=== PATIENT | female | born 1975 | race Hispanic/Latino ===

== ENCOUNTER 2018-05-10 20:58 | Emergency (ER) | payer SELFPAY ==
[2018-05-10 21:28] LABS: Absolute Lymphocytes (CBC) 1.6 K/uL (0.7-4.9); Absolute Monocytes 0.5 K/uL (0.1-1.3); Absolute Neutrophil 4.8 K/uL (1.8-8.0); Basophils % 0.4 % (0-1.3); Hematocrit 38.8 % (36.0-45.0); Lymphocytes % 22.2 % (15.3-44.8); MCH 31.3 pg (27.0-35.0); MCV 88.1 fL (80-100); MPV 8.9 fL (7.6-11.3); RBC Red Blood Cell Count 4.41 M/uL (3.86-4.86)
[2018-05-10 21:32] LABS: Protime INR 0.99
--- NOTE | 2018-05-10 21:35 | RAD REPORT ---
EXAM DESCRIPTION: CT - Ct Stroke Brain Wo Cont - 05/10/2018 9:26 pm CLINICAL HISTORY: Aphasia COMPARISON: None. TECHNIQUE: Computed axial tomography of the head was obtained. IV contrast was not requested. All CT scans are performed using dose optimization technique as appropriate and may include automated exposure control or mA/KV adjustment according to patient size. FINDINGS: An intracranial bleed is not seen . The ventricles are normal in caliber. No extra-axial fluid collection is noted. Fluid within the sinuses/ mastoids is not seen. IMPRESSION: No acute intracranial abnormality is seen. If patient's symptoms persist MRI of the bra in would be recommended. Dr. Machuca was notified 9:29 p.m. April 10, 2018
[2018-05-10 21:41] LABS: BUN Blood Urea Nitrogen 20 mg/dL (7-18); Bicarbonate 26 mmol/L (21-32); Glucose Level 88 mg/dL (74-106); Magnesium 2.3 mg/dL (1.8-2.4); Potassium 3.9 mmol/L (3.5-5.1); Sodium Level 139 mmol/L (136-145)
[2018-05-10] MEDS ORDERED: LABETALOL 20 MG/4ML SYRINGE IV ONE ×2 (21:45→22:12)
[2018-05-10] MEDS ORDERED: ALTEPLASE 100 ML IV ONE (22:13)
[2018-05-10] MEDS ORDERED: NA CHLORIDE 0.9% 50 ML IV ONE (22:21)
--- NOTE | 2018-05-10 22:46 | RAD REPORT ---
EXAM DESCRIPTION: RAD - Chest Single View - 05/10/2018 9:42 pm CLINICAL HISTORY: CVA Chest pain. COMPARISON: Ct Stroke Brain Wo Cont dated 05/10/2018 FINDINGS: Portable technique limits examination quality. The lungs are grossly clear. Trace left pleural effusion is possible. The heart is normal in size. No displaced fractures. IMPRESSION: No acute intrathoracic process suspected.
[2018-05-10] MEDS ORDERED: ACETAMINOPHEN 325 MG TABLET ONE (22:58)
--- NOTE | 2018-05-10 23:16 | EDPHYS ---
Physician Documentation [facility] Name: Stacy Berrios Age: 43 yrs Sex: Female : 1975 Arrival Date: 05/10/2018 Time: 20:59 Bed 4 Private MD: ED Physician Nico Gresham HPI: 05/10 21:15 This 43 yrs old Female presents to ER via Unassigned with complaints of Headache, ps1 Slurred Speech, Eye Pain. 21:15 hx of TBI fell out of truck a year ago in April. HTN. Not on thinners. LKN 2014. Slurred ps1 speech. left facial droop. Right leg weakness. Headache. Stroke alert. . Historical: - Allergies: 21:21 PENICILLINS; ak1 - Home Meds: 21:21 None [Active]; ak1 - PMHx: 21:21 TBI; ak1 - PSHx: 21:21 None; ak1 - Immunization history:: Adult Immunizations unknown. - Social history:: Smoking status: unknown. - Ebola Screening: : No symptoms or risks identified at this time. ROS: 21:15 Constitutional: Negative for fever, chills, and weight loss, Eyes: Negative for injury, ps1 pain, redness, and discharge, ENT: Negative for injury, pain, and discharge, Cardiovascular: Negative for chest pain, palpitations, and edema, Respiratory: Negative for shortness of breath, cough, wheezing, and pleuritic chest pain, Abdomen/GI: Negative for abdominal pain, nausea, vomiting, diarrhea, and constipation, Back: Negative for injury and pain. 21:15 Neuro: Positive for headache, speech changes, weakness. Exam: 21:15 Constitutional: This is a well developed, well nourished patient who is awake, alert, ps1 and in no acute distress. Head/Face: Normocephalic, atraumatic. Eyes: Pupils equal round and reactive to light, extra-ocular motions intact. Lids and lashes normal. Conjunctiva and sclera are non-icteric and not injected. Chest/axilla: Normal chest wall appearance and motion. Nontender with no deformity. No lesions are appreciated. Cardiovascular: Regular rate and rhythm. No gallops, murmurs, or rubs. Normal PMI, no JVD. No pulse deficits. Respiratory: Lungs have equal breath sounds bilaterally, clear to auscultation and percussion. No rales, rhonchi or wheezes noted. No increased work of breathing, no retractions or nasal flaring. Abdomen/GI: Soft, non-tender, with normal bowel sounds. No distension or tympany. No guarding or rebound. No evidence of tenderness throughout. Skin: Warm, dry with normal turgor. Normal color with no rashes, no lesions, and no evidence of cellulitis. MS/ Extremity: Pulses equal, no cyanosis. Neurovascular intact. Full, normal range of motion. 21:15 Neuro: Orientation: is normal, Mentation: is normal, Cranial nerves: normal except left face droop, Motor: weak in right leg, dysarthria and mild aphasia. Vital Signs: 21:05 BP 174 / 137; Pulse 83; Resp 18; Temp 98.3; Pulse Ox 100% on R/A; Weight 72.57 kg (R); ak1 Height 4 ft. 9 in. (144.78 cm); Pain 10/10; 21:44 BP 171 / 103; Pulse 68; Resp 18; Pulse Ox 100% ; lp1 22:02 BP 143 / 117; Pulse 78; Resp 16; Pulse Ox 99% on R/A; lp1 22:06 BP 152 / 100; Pulse 72; Resp 16; Pulse Ox 99% on R/A; lp1 22:20 Weight 61.9 kg (M); lp1 22:25 lp1 23:00 BP 133 / 96; Pulse 73; Resp 19; Pulse Ox 100% on R/A; lp1 05/11 00:00 BP 114 / 80; Pulse 68; Resp 15; Pulse Ox 100% on R/A; lp1 05/10 22:20 Body Mass Index 29.53 (61.90 kg, 144.78 cm) lp1 05/10 22:25 See Flowsheet for further vitals lp1 NIH Stroke Scale Scores: 21:05 NIHSS Score: 4 ak1 21:09 NIHSS Score: 4 ak1 05/11 00:00 NIHSS Score: 2 lp1 [place] Coma Score: 00:00 Eye Response: spontaneous(4). Verbal Response: oriented(5). Motor Response: obeys lp1 commands(6). Total: 15. MDM: 05/10 21:21 Patient medically screened. ps1 05/10 21:20 Order name: Troponin (emerg Dept Use Only); Complete Time: :05/10 21:20 Order name: Magnesium; Complete Time: :05/10 21:20 Order name: Basic Metabolic Panel; Complete Time: 22: [facility] 05/10 21:20 Order name: CBC with Diff; Complete Time: :05/10 21:20 Order name: Protime (+inr); Complete Time: :05/10 21:20 Order name: Ptt, Activated; Complete Time: :05/10 21:20 Order name: CT Stroke Brain w/o Contrast; Complete Time: 22:05/10 21:20 Order name: Stroke CXR 1 View; Complete Time: 23:05/10 21:20 Order name: EKG; Complete Time: 21:05/10 21:20 Order name: Accucheck; Complete Time: :05/10 21:20 Order name: Cardiac monitoring; Complete Time: :05/10 21:20 Order name: EKG - Nurse/Tech; Complete Time: :05/10 21:20 Order name: IV Saline Lock; Complete Time: :05/10 21:20 Order name: Labs collected and sent; Complete Time: :05/10 21:20 Order name: NPO; Complete Time: :05/10 21:20 Order name: O2 Per Protocol; Complete Time: :05/10 21:20 Order name: O2 Sat Monitoring; Complete Time: :05/10 21:20 Order name: Stroke Swallow Screen; Complete Time: : ps1 Administered Medications: 21:45 Drug: Labetalol 10 mg Route: IVP; Infused Over: 2 mins; Site: right antecubital; lp1 22:59 Follow up: Response: Blood pressure is lowered lp1 22:27 Drug: ACTIvase 9 mg/kg {Co-Signature: lp1 (Vita Andrea RN).} Route: IV; Rate: calculated fc rate; Infused Over: 60 mins; Site: right antecubital; 23:28 Follow up: IV Status: Completed infusion lp1 22:59 Drug: Tylenol 650 mg Route: PO; lp1 05/11 00:20 Follow up: Response: Pain is decreased lp1 Point of Care Testing: Blood Glucose: 05/10 21:10 Blood Glucose: 84 mg/dL; ak1 Ranges: Critical Glucose Levels:Adult <50 mg/dl or >400 mg/dl <40 mg/dl or >180 mg/dl Disposition: 05/10/18 23:15 Transfer ordered to [facility]. Diagnosis is CVA. - Reason for transfer: Higher level of care. - Accepting physician is Young. - Condition is Fair. - Problem is new. - Symptoms are unchanged. NIH Stroke Scale - NIH Stroke Score Date: 05/10/2018 Time: 21:05 Total Score = 4 1a. Level of Consciousness (LOC) - 0(Alert) 1b. Level of Consciousness (LOC) (Year \T\ Age) - 0(Both) 1c. LOC Commands (Open \T\ Closes Eyes/[employer]) - 0(Both) 2. Best Gaze (Lateral Gaze Paresis) - 0(Normal) 3. Visual Field Loss - 0(No visual loss) 4. Facial Palsy - 1(Minor Paralysis) 5a. Left Arm: Motor (10-second hold) - 0(No drift) 5b. Right Arm: Motor (10-second hold) - 0(No drift) 6a. Left Leg: Motor (5-second hold - always test supine) - 1(Drift) 6b. Right Leg: Motor (5-second hold - always test supine) - 0(No drift) 7. Limb Ataxia (finger/nose \T\ heel/muller - test with eyes open) - 0(Absent) 8. Sensory Loss (pinprick arms/legs/face) - 0(Normal) 9. Best Language: Aphasia (description/naming/reading) - 1(Mild to moderate aphasia) 10. Dysarthria (speech clarity - read or repeat words) - 1(Mild to Moderate) 11. Extinction and Inattention (visual/tactile/auditory/spatial/personal) - 0(No abnormality) Initials: ak1 NIH Stroke Scale - NIH Stroke Score Date: 05/10/2018 Time: 21:09 Total Score = 4 1a. Level of Consciousness (LOC) - 0(Alert) 1b. Level of Consciousness (LOC) (Year \T\ Age) - 0(Both) 1c. LOC Commands (Open \T\ Closes Eyes/[employer]) - 0(Both) 2. Best Gaze (Lateral Gaze Paresis) - 0(Normal) 3. Visual Field Loss - 0(No visual loss) 4. Facial Palsy - 1(Minor Paralysis) 5a. Left Arm: Motor (10-second hold) - 0(No drift) 5b. Right Arm: Motor (10-second hold) - 0(No drift) 6a. Left Leg: Motor (5-second hold - always test supine) - 1(Drift) 6b. Right Leg: Motor (5-second hold - always test supine) - 0(No drift) 7. Limb Ataxia (finger/nose \T\ heel/muller - test with eyes open) - 0(Absent) 8. Sensory Loss (pinprick arms/legs/face) - 0(Normal) 9. Best Language: Aphasia (description/naming/reading) - 1(Mild to moderate aphasia) 10. Dysarthria (speech clarity - read or repeat words) - 1(Mild to Moderate) 11. Extinction and Inattention (visual/tactile/auditory/spatial/personal) - 0(No abnormality) Initials: ak1 NIH Stroke Scale - NIH Stroke Score Date: 05/11/2018 Time: 00:00 Total Score = 2 1a. Level of Consciousness (LOC) - 0(Alert) 1b. Level of Consciousness (LOC) (Year \T\ Age) - 0(Both) 1c. LOC Commands (Open \T\ Closes Eyes/[employer]) - 0(Both) 2. Best Gaze (Lateral Gaze Paresis) - 0(Normal) 3. Visual Field Loss - 0(No visual loss) 4. Facial Palsy - 1(Minor Paralysis) 5a. Left Arm: Motor (10-second hold) - 0(No drift) 5b. Right Arm: Motor (10-second hold) - 0(No drift) 6a. Left Leg: Motor (5-second hold - always test supine) - 0(No drift) 6b. Right Leg: Motor (5-second hold - always test supine) - 1(Drift) 7. Limb Ataxia (finger/nose \T\ heel/muller - test with eyes open) - 0(Absent) 8. Sensory Loss (pinprick arms/legs/face) - 0(Normal) 9. Best Language: Aphasia (description/naming/reading) - 0(No aphasia) 10. Dysarthria (speech clarity - read or repeat words) - 0(Normal) 11. Extinction and Inattention (visual/tactile/auditory/spatial/personal) - 0(No abnormality) Initials: lp1 Signatures: Dispatcher [employer] Gaviota Cabrales, RN RN fc Vita Andrea RN RN lp1 Yari Forbes RN RN ak1 Nico Gresham MD MD ps1 Vita Andrea RN lp1 Corrections: (The following items were deleted from the chart) 05/11 00:21 05/10 23:15 05/10/2018 23:15 Transfer ordered to [address] Diagnosis is CVA. Reason for transfer: Higher level of care. Accepting physician is Young. Condition is Fair. Problem is new. Symptoms are unchanged. ps1
--- NOTE | 2018-05-10 23:16 | ER ---
Nurse's Notes [facility] Name: Stacy Berrios Age: 43 yrs Sex: Female : 1975 Arrival Date: 05/10/2018 Time: 20:59 Bed 4 Private MD: Diagnosis: CVA Presentation: 05/10 21:05 Presenting complaint: Patient states: headache, light sensitivity to right eye, ak1 dysarthria, stuttering that family stated is not WNL. pt loss of hearing in right ear that is WNL. pt with hx TBI 1 year ago in April, pt fell out of bed of moving truck and had swelling with skull fx. Transition of care: patient was not received from another setting of care. Onset of symptoms was May 10, 2018. Risk Assessment: Do you want to hurt yourself or someone else? Patient reports no desire to harm self or others. Initial Sepsis Screen: Does the patient meet any 2 criteria? No. Patient's initial sepsis screen is negative. Does the patient have a suspected source of infection? No. Patient's initial sepsis screen is negative. Care prior to arrival: None. 21:16 Method Of Arrival: Wheelchair ak1 21:16 Acuity: MILLIE 2 ak1 21:16 An acute neurological deficit is present. lp1 21:30 The patients blood glucose was checked before arriving to the hospital and was found to ak1 be normal. Triage Assessment: 21:05 Headache History: Denies prior headaches. General: Appears uncomfortable, Behavior is ak1 cooperative. Pain: Complains of pain in left frontal area and left side of the back of head Pain currently is 10 out of 10 on a pain scale. Pain began 30 min ago. Also complains of photophobia. EENT: No signs and/or symptoms were reported regarding the EENT system. Neuro: Level of Consciousness is awake, alert, obeys commands, Oriented to person, place, time, situation, Street Light Mechanic are weak on right Moves all extremities. Gait is unsteady, Speech is slurred, with expressive aphasia noted, Facial droop on left. Cardiovascular: No deficits noted. Respiratory: No deficits noted. GI: No signs and/or symptoms were reported involving the gastrointestinal system. : No signs and/or symptoms were reported regarding the genitourinary system. Derm: No signs and/or symptoms reported regarding the dermatologic system. Musculoskeletal: No signs and/or symptoms reported regarding the musculoskeletal system. 21:30 The onset of the patients symptoms was May 10, 2018 at 20:30. lp1 Stroke Activation: Symptom onset < 3 hours Physician: Stroke Attending; Name: DR. Gresham; Notified At: 21:09; Arrived At: 21:09 Physician: Chief Stroke Resident; Name: ; Notified At: 21:09; Arrived At: Physician: Stroke Resident; Name: ; Notified At: 21:09; Arrived At: Physician: ED Attending; Name: Dr. Gresham; Notified At: 21:09; Arrived At: 21:09 Physician: ED Resident; Name: ; Notified At: 21:; Arrived At: Historical: - Allergies: 21:21 PENICILLINS; ak1 - Home Meds: 21:21 None [Active]; ak1 - PMHx: 21:21 TBI; ak1 - PSHx: 21:21 None; ak1 - Immunization history:: Adult Immunizations unknown. - Social history:: Smoking status: unknown. - Ebola Screening: : No symptoms or risks identified at this time. Screenin:23 Abuse screen: Denies threats or abuse. Denies injuries from another. Nutritional ak1 screening: No deficits noted. Tuberculosis screening: No symptoms or risk factors identified. Fall Risk None identified. Assessment: 21:05 Patient has been NPO before screening. The patient is alert, and able to follow ak1 commands. The patient exhibits slurred or garbled speech. The patient is exhibiting difficulty speaking. The patient does not exhibit difficulty understanding words. The patient is able to swallow own secretions with no drooling or need for suction. Patient tolerated one teaspoon of water. No drooling, immediate coughing, gurgling, or clearing of the throat was noted. The patient passed the bedside swallow screening. Oral medications may be given as ordered. Contact Physician for further diet orders. Provider notified of bedside swallow screening results: Nico Gresham MD. 21:05 The patient tolerated 90mL of water. No drooling, immediate coughing, gurgling, or lp1 clearing of the throat was noted. 21:30 General: Appears uncomfortable, Behavior is anxious. Pain: Complains of pain in head lp1 Pain currently is 10 out of 10 on a pain scale. Noted to be crying, grimacing, moaning. Neuro: Level of Consciousness is awake, alert, obeys commands, Oriented to person, place, situation, Street Light Mechanic are equal bilaterally Moves all extremities. Weakness in right leg(s) Speech with expressive aphasia noted, Facial droop on left, Facial symmetry: tongue is midline, Pupils are PERRLA, Intact Reports headache occipital area, photophobia. Cardiovascular: Capillary refill < 3 seconds in bilateral fingers toes Patient's skin is warm and dry. Rhythm is sinus rhythm. Respiratory: Airway is patent Respiratory effort is even, unlabored, Breath sounds are clear bilaterally. GI: Abdomen is non-distended. : No signs and/or symptoms were reported regarding the genitourinary system. EENT: No signs and/or symptoms were reported regarding the EENT system. Derm: Skin is pink, warm \T\ dry. Musculoskeletal: Circulation, motion, and sensation intact. 22:09 T-PA (Activase) Screening: Indications: Definite evidence of stroke, ischemic, embolic, lp1 or hypertensive: Yes. Treatment will start within 4.5 hours onset of symptoms: Yes. No evidence of intracranial hemorrhage or CT of head and no evidence of peripheral hemorrhage or recent CVA: Yes. Consent for thrombolytic therapy: Yes. 22:54 Reassessment: Report given to Fatuma Gannon RN at [facility]. lp1 23:00 Reassessment: Patient is alert, oriented x 3, equal unlabored respirations, skin lp1 warm/dry/pink. Some bleeding noted from gums at this time; Provider notified. 23:10 Reassessment: Improvement of expressive aphasia noted, Patient states relief from lp1 headache. 23:30 Reassessment: Patient is alert, oriented x 3, equal unlabored respirations, skin lp1 warm/dry/pink. Continued minimal bleeding from gums; Family at bedside, aware of pending transfer. 05/11 00:00 Reassessment: EMS at bedside. lp1 Vital Signs: 05/10 21:05 BP 174 / 137; Pulse 83; Resp 18; Temp 98.3; Pulse Ox 100% on R/A; Weight 72.57 kg (R); ak1 Height 4 ft. 9 in. (144.78 cm); Pain 10; 21:44 BP 171 / 103; Pulse 68; Resp 18; Pulse Ox 100% ; lp1 22:02 BP 143 / 117; Pulse 78; Resp 16; Pulse Ox 99% on R/A; lp1 22:06 BP 152 / 100; Pulse 72; Resp 16; Pulse Ox 99% on R/A; lp1 22:20 Weight 61.9 kg (M); lp1 22:25 lp1 23:00 BP 133 / 96; Pulse 73; Resp 19; Pulse Ox 100% on R/A; lp1 05/11 00:00 BP 114 / 80; Pulse 68; Resp 15; Pulse Ox 100% on R/A; lp1 05/10 22:20 Body Mass Index 29.53 (61.90 kg, 144.78 cm) lp1 05/10 22:25 See Flowsheet for further vitals lp1 [place] Coma Score: 05/11 00:00 Eye Response: spontaneous(4). Verbal Response: oriented(5). Motor Response: obeys lp1 commands(6). Total: 15. NIH Stroke Scale Scores: 05/10 21:05 NIHSS Score: 4 ak1 21:09 NIHSS Score: 4 ak1 05/11 00:00 NIHSS Score: 2 lp1 ED Course: 05/10 20:59 Patient arrived in ED. al2 21:05 Arm band placed on Patient placed in an exam room, on a stretcher, Patient notified of ak1 wait time. 21:10 Inserted saline lock: 20 gauge in right antecubital area, using aseptic technique. lp1 Blood collected. 21:15 Nico Gresham MD is Attending Physician. ps1 21:19 Triage completed. ak1 21:23 Patient has correct armband on for positive identification. Placed in gown. Bed in low ak1 position. Call light in reach. Side rails up X2. Adult w/ patient. equipment monitor phototypesetting on. Pulse ox on. NIBP on. 21:25 CT Stroke Brain w/o Contrast In Process Unspecified. EDMS 21:29 EKG done, by ED staff, reviewed by Nico Gresham MD. mt 21:40 Vita Andrea, LLOYD is Primary Nurse. lp1 21:42 Stroke CXR 1 View In Process Unspecified. EDMS 05/11 00:19 No provider procedures requiring assistance completed. Patient transferred, IV remains lp1 in place. Administered Medications: 05/10 21:45 Drug: Labetalol 10 mg Route: IVP; Infused Over: 2 mins; Site: right antecubital; lp1 22:59 Follow up: Response: Blood pressure is lowered lp1 22:27 Drug: ACTIvase 9 mg/kg {Co-Signature: lp1 (Vita Andrea RN).} Route: IV; Rate: calculated fc rate; Infused Over: 60 mins; Site: right antecubital; 23:28 Follow up: IV Status: Completed infusion lp1 22:59 Drug: Tylenol 650 mg Route: PO; lp1 05/11 00:20 Follow up: Response: Pain is decreased lp1 Point of Care Testing: Blood Glucose: 05/10 21:10 Blood Glucose: 84 mg/dL; ak1 Ranges: Outcome: 23:15 ER care complete, transfer ordered by . ps1 05/11 00:19 Transferred by ground EMS to [facility], Transfer form completed. X-rays sent lp1 w/ patient. critical Instructed on the need for transfer. 00:21 Patient left the ED. lp1 NIH Stroke Scale - NIH Stroke Score Date: 05/10/2018 Time: 21:05 Total Score = 4 1a. Level of Consciousness (LOC) - 0(Alert) 1b. Level of Consciousness (LOC) (Year \T\ Age) - 0(Both) 1c. LOC Commands (Open \T\ Closes Eyes/Front Office Specialist) - 0(Both) 2. Best Gaze (Lateral Gaze Paresis) - 0(Normal) 3. Visual Field Loss - 0(No visual loss) 4. Facial Palsy - 1(Minor Paralysis) 5a. Left Arm: Motor (10-second hold) - 0(No drift) 5b. Right Arm: Motor (10-second hold) - 0(No drift) 6a. Left Leg: Motor (5-second hold - always test supine) - 1(Drift) 6b. Right Leg: Motor (5-second hold - always test supine) - 0(No drift) 7. Limb Ataxia (finger/nose \T\ heel/muller - test with eyes open) - 0(Absent) 8. Sensory Loss (pinprick arms/legs/face) - 0(Normal) 9. Best Language: Aphasia (description/naming/reading) - 1(Mild to moderate aphasia) 10. Dysarthria (speech clarity - read or repeat words) - 1(Mild to Moderate) 11. Extinction and Inattention (visual/tactile/auditory/spatial/personal) - 0(No abnormality) Initials: ak1 NIH Stroke Scale - NIH Stroke Score Date: 05/10/2018 Time: 21:09 Total Score = 4 1a. Level of Consciousness (LOC) - 0(Alert) 1b. Level of Consciousness (LOC) (Year \T\ Age) - 0(Both) 1c. LOC Commands (Open \T\ Closes Eyes/Front Office Specialist) - 0(Both) 2. Best Gaze (Lateral Gaze Paresis) - 0(Normal) 3. Visual Field Loss - 0(No visual loss) 4. Facial Palsy - 1(Minor Paralysis) 5a. Left Arm: Motor (10-second hold) - 0(No drift) 5b. Right Arm: Motor (10-second hold) - 0(No drift) 6a. Left Leg: Motor (5-second hold - always test supine) - 1(Drift) 6b. Right Leg: Motor (5-second hold - always test supine) - 0(No drift) 7. Limb Ataxia (finger/nose \T\ heel/muller - test with eyes open) - 0(Absent) 8. Sensory Loss (pinprick arms/legs/face) - 0(Normal) 9. Best Language: Aphasia (description/naming/reading) - 1(Mild to moderate aphasia) 10. Dysarthria (speech clarity - read or repeat words) - 1(Mild to Moderate) 11. Extinction and Inattention (visual/tactile/auditory/spatial/personal) - 0(No abnormality) Initials: ak1 NIH Stroke Scale - NIH Stroke Score Date: 05/11/2018 Time: 00:00 Total Score = 2 1a. Level of Consciousness (LOC) - 0(Alert) 1b. Level of Consciousness (LOC) (Year \T\ Age) - 0(Both) 1c. LOC Commands (Open \T\ Closes Eyes/Front Office Specialist) - 0(Both) 2. Best Gaze (Lateral Gaze Paresis) - 0(Normal) 3. Visual Field Loss - 0(No visual loss) 4. Facial Palsy - 1(Minor Paralysis) 5a. Left Arm: Motor (10-second hold) - 0(No drift) 5b. Right Arm: Motor (10-second hold) - 0(No drift) 6a. Left Leg: Motor (5-second hold - always test supine) - 0(No drift) 6b. Right Leg: Motor (5-second hold - always test supine) - 1(Drift) 7. Limb Ataxia (finger/nose \T\ heel/muller - test with eyes open) - 0(Absent) 8. Sensory Loss (pinprick arms/legs/face) - 0(Normal) 9. Best Language: Aphasia (description/naming/reading) - 0(No aphasia) 10. Dysarthria (speech clarity - read or repeat words) - 0(Normal) 11. Extinction and Inattention (visual/tactile/auditory/spatial/personal) - 0(No abnormality) Initials: lp1 Signatures: Dispatcher [employer] EDMS Gaviota Morataya RN RN Vita Andrea RN RN lp1 Yari Forbes RN RN [facility] Kelsey Lazo mt, Phillip, MD MD ps1 Love, Angelica al2 Laura Pena RN lp1 Corrections: (The following items were deleted from the chart) 05/10 21:26 21:16 Presenting complaint: Patient states: headache, light sensitivity to ak1 right eye, dysarthria, stuttering that family stated is not WNL. pt loss of hearing in right ear that is WNL. pt with hx TBI 1 year ago in April, pt fell out of bed of moving truck and had swelling with skull fx. [facility] 21: 21:16 Transition of care: patient was not received from another setting of [facility] care. [facility] : 21:16 Onset of symptoms was May 10, 2018 [place] [id number] 21: 21:16 Risk Assessment: Do you want to hurt yourself or someone else? Patient [facility] reports no desire to harm self or others. [facility] : 21:16 Initial Sepsis Screen: Does the patient meet any 2 criteria? No. ak1 Patient's initial sepsis screen is negative. Does the patient have a suspected source of infection? No. Patient's initial sepsis screen is negative. [facility] 21: 21:16 Care prior to arrival: None. [place] [id number] :28 21:21 Headache History: Denies prior headaches. ak1 ak1 21:21 General: Appears uncomfortable, Behavior is cooperative, az1 [facility] 21:21 Pain: Complains of pain in left frontal area and left side of the back of ak1 head Pain currently is 10 out of 10 on a pain scale. Pain began 30 min ago. Also complains of photophobia, az1 21:21 EENT: No signs and/or symptoms were reported regarding the EENT system. ak1 [facility] 21:21 Neuro: Level of Consciousness is awake, alert, obeys commands, Oriented ak1 to person, place, time, situation, Street Light Mechanic are weak on right Moves all extremities. Gait is unsteady, Speech is slurred, with expressive aphasia noted, Facial droop on left, [facility] 21:21 Cardiovascular: No deficits noted. ak1 [facility] 21:21 Respiratory: No deficits noted. ak1 [facility] 21:21 GI: No signs and/or symptoms were reported involving the gastrointestinal ak1 system. ak1 21:21 : No signs and/or symptoms were reported regarding the genitourinary ak1 system. ak 21:21 Derm: No signs and/or symptoms reported regarding the dermatologic ak1 system. [facility] 21:21 Musculoskeletal: No signs and/or symptoms reported regarding the ak1 musculoskeletal system. [facility] 21:21 BP 174 / 137; Pulse 83bpm; Resp 18bpm; Pulse Ox 100% RA; Temp 98.3F; ak1 72.57 kg Reported; Height 4 ft. 9 in.; BMI: 34.6; Pain 10/10; az1 21:21 Arm band placed on Patient placed in an exam room, on a stretcher, ak1 Patient notified of wait time ak
--- NOTE | 2018-05-11 06:31 | EKG ---
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
== END 2018-05-11 00:21 | disposition short-term general hospital (02) ==
LOC: ER 20:58
DX: I63.9 Cerebral infarction, unspecified (principal); R47.81 Slurred speech; I10 Essential (primary) hypertension; R29.704 NIHSS score 4; Z88.0 Allergy status to penicillin
CPT/HCPCS: 36415; 70450; 71045; 80048; 82962; 83735; 84484; 85025; 85610; 85730; 92977; 93005; 96365; 96374; 96375; 99291; J2997

== ENCOUNTER 2020-01-09 13:04 | Emergency (ER) | payer SELFPAY ==
--- OUTSIDE RECORDS SUMMARY | 2020-01-09 13:06 | XMS REPORT | Summary of Care ---
:1975 Author Name BRITTANY CANTU M.D. Address Unavailable Unavailable , Care Team Providers Name Role Phone BRITTANY CANTU M.D. Unavailable Unavailable Unavailable Unavailable Unavailable Functional Status Name Dates Details Functional status health issues are not documented Status: Name Dates Details Cognitive status health issues are not documented Status: Problems Name Dates Details Complicated migraine (346.00, G43.109) Status: Active Medications Name Dates Details Aspirin 81 MG Oral Tablet Delayed Release TAKE 1 TABLET DAILY. Refills: 2 Start : 14-Jun-2018 Active Verapamil HCl - 40 MG Oral Tablet TAKE 1 TABLET EVERY 8 HOURS DAILY. Quantity: 90 Refills: 2 BRITTANY CANTU M.D. Start : 14-Jun-2018 Active Allergies and Adverse Reactions Name Dates Details Penicillins (Allergy) Status: Active Procedures Procedure Dates Details Procedures not documented Immunization Name Dates Details Immunizations not documented Social History Name Dates Details - Status: Name Dates Details Former smoker Vital Signs Date Test Result Details [id number] BP Systolic 136 mm[Hg] Status: Comments: Location: RUE; Position: Sitting BP Diastolic 94 mm[Hg] Status: Comments: Location: RUE; Position: Sitting Height 57 in Status: Weight 134.375 lb Status: Body Mass Index Calculated 29.08 kg/m2 Status: Body Surface Area Calculated 1.52 m2 Status: Heart Rate 62 /min Status: Comments: Location: R Brachial Artery; Results Date Description Value Details Results not documented Plan of Care Name Dates Details Planned Observations Planned Goals not documented Interventions Provided Medication ChangesVerapamil HCl - 40 MG Oral Tablet - StartPlan- Continue aspirin 81 mg daily as primary stroke prevention- Recheck lipid profile in 3 months, currently at goal of LDL < 70- Continue to monitor your blood pressure with your primary doctor. Goal BP < 130/80.- Referral to PT for right sided weakness.- Headache management: start verapamil 40 mg three times a day. Continue to watch your blood pressure on this medication. Please call the office to let us know what medications you are using for your headaches that were prescribed by your primary doctor. Instructions Name Dates Details Instructions not documented Encounters Appointment; BRITTANY CANTU M.D. On: 14-Jun-2018 9:00 Encounter Diagnosis: Problem not documented
--- NOTE | 2020-01-09 16:07 | RAD REPORT ---
EXAM DESCRIPTION: RAD - Chest Single View - 01/09/2020 4:00 pm CLINICAL HISTORY: COUGH Chest pain. COMPARISON: Chest Single View dated 05/10/2018 FINDINGS: Portable technique limits examination quality. The lungs are grossly clear. Small left pleural effusion. The heart is normal in size. No displaced f ractures.
--- NOTE | 2020-01-09 16:35 | ER ---
Nurse's Notes [facility] Name: Stacy Berrios Age: 44 yrs Sex: Female : 1975 Arrival Date: 01/09/2020 Time: 13:05 Bed 16 Private MD: Diagnosis: Acute Bacterial Bronchitis;Acute pharyngitis Presentation: 01/08 13:37 Chief complaint: Patient states: painful cough and sore throat that began 3-4 days ago. ss Denies fever. Coronavirus screen: The patient has NOT traveled to a country currently being monitored by the [facility] within the last 14 days. Proceed with normal triage procedures. Ebola Screen: Patient denies exposure to infectious person. Patient denies travel to an Ebola-affected area in the 21 days before illness onset. Initial Sepsis Screen: Does the patient meet any 2 criteria? No. Patient's initial sepsis screen is negative. Does the patient have a suspected source of infection? No. Patient's initial sepsis screen is negative. Risk Assessment: Do you want to hurt yourself or someone else? Patient reports no desire to harm self or others. 13:37 Method Of Arrival: Ambulatory ss 13:37 Acuity: MILLIE 4 ss 16:58 Onset of symptoms was January 09, 2020. 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 tw2 Historical: - Allergies: 13:39 PENICILLINS; ss - Home Meds: 13:39 None [Active]; ss - PMHx: 13:39 TBI; ss - PSHx: 13:39 None; ss - Immunization history:: Adult Immunizations up to date. - Social history:: Smoking status: Patient denies any tobacco usage or history of. Screenin:57 Abuse screen: Denies threats or abuse. Nutritional screening: No deficits noted. tw2 Tuberculosis screening: No symptoms or risk factors identified. Fall Risk None identified. Assessment: 14:59 General: Appears in no apparent distress. slender, well groomed, Behavior is calm, tw2 cooperative, appropriate for age. Pain: Complains of pain in uvula, left aspect of posterior pharynx and right aspect of posterior pharynx. Neuro: Level of Consciousness is awake, alert, obeys commands, Oriented to person, place, time, situation. Cardiovascular: Patient's skin is warm and dry. Respiratory: 16:34 Reassessment: Patient appears in no apparent distress at this time. Reassessment: No tw2 changes from previously documented assessment. Patient and/or family updated on plan of care and expected duration. Pain level reassessed. Patient is alert, oriented x 3, equal unlabored respirations, skin warm/dry/pink. 16:58 Reassessment: Patient appears in no apparent distress at this time. No changes from tw2 previously documented assessment. Patient and/or family updated on plan of care and expected duration. Pain level reassessed. Patient is alert, oriented x 3, equal unlabored respirations, skin warm/dry/pink. Vital Signs: 13:37 BP 123 / 65; Pulse 75; Resp 15; Temp 98.0(TE); Pulse Ox 98% on R/A; Weight 63.5 kg; ss Height 4 ft. 9 in. (144.78 cm); Pain 8/10; 15:04 BP 117 / 80 LA (auto/reg); Pulse 85; Temp 99.4(O); Pulse Ox 100% on R/A; Pain 8/10; jp3 16:33 BP 107 / 77; Pulse 89; Resp 17; Temp 99(O); Pulse Ox 100% on R/A; tw2 13:37 Body Mass Index 30.30 (63.50 kg, 144.78 cm) ED Course: 13:05 Patient arrived in ED. ag5 13:39 Triage completed. ss 13:39 Arm band placed on left wrist. ss 14:56 [facility] jr8 14:56 Igor Alcazar MD is Attending Physician. jr8 14:57 Cindy Ratliff, LLOYD is Primary Nurse. tw2 14:58 Bed in low position. Call light in reach. tw2 15:04 Verbal reassurance given. Pulse ox on. NIBP on. jp3 15:04 Patient maintains SpO2 saturation greater than 95% on room air. jp3 16:10 XRAY Chest (1 view) In Process Unspecified. EDMS 16:58 No provider procedures requiring assistance completed. Patient did not have IV access tw2 during this emergency room visit. Administered Medications: No medications were administered Outcome: 16:34 Discharge ordered by . jr8 16:58 Discharged to home ambulatory. tw2 16:58 Condition: stable 16:58 Discharge instructions given to patient, Instructed on discharge instructions, follow up and referral plans. no drinking with medication, no driving heavy equipment, medication usage, Demonstrated understanding of instructions, follow-up care, medications, Prescriptions given X 2. 16:59 Patient left the ED. tw2 Signatures: Dispatcher [employer] EDMS Shabnam Maravilla RN RN ss Cecil Vallejo PA PA jr8 Cindy Ratliff RN RN tw2 Casey Licona jp3 Redd [place] [facility]
--- NOTE | 2020-01-09 16:35 | EDPHYS ---
Physician Documentation [facility] Name: Stacy Berrios Age: 44 yrs Sex: Female : 1975 Arrival Date: 01/09/2020 Time: 13:05 Bed 16 Private MD: ED Physician Igor Alcazar HPI: 01/08 15:53 This 44 yrs old Female presents to ER via Ambulatory with complaints of Sore jr8 Throat, Cough, Congestion. 15:53 The patient presents with sore throat. The patient describes throat pain as constant, jr8 raw. Onset: The symptoms/episode began/occurred acutely, 2 day(s) ago. Severity of symptoms: At their worst the symptoms were mild, in the emergency department the symptoms are unchanged. Modifying factors: The symptoms are alleviated by nothing, the symptoms are aggravated by nothing. Associated signs and symptoms: Pertinent positives: chills, cough, fever, flu-like symptoms. The patient has not experienced similar symptoms in the past. The patient has not recently seen a physician. 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 tw2 Historical: - Allergies: 13:39 PENICILLINS; ss - Home Meds: 13:39 None [Active]; ss - PMHx: 13:39 TBI; ss - PSHx: 13:39 None; ss - Immunization history:: Adult Immunizations up to date. - Social history:: Smoking status: Patient denies any tobacco usage or history of. ROS: 15:53 Eyes: Negative for injury, pain, redness, and discharge, Neck: Negative for injury, jr8 pain, and swelling, Abdomen/GI: Negative for abdominal pain, nausea, vomiting, diarrhea, and constipation, Back: Negative for injury and pain, MS/Extremity: Negative for injury and deformity, Skin: Negative for injury, rash, and discoloration, Neuro: Negative for headache, weakness, numbness, tingling, and seizure. 15:53 Constitutional: Positive for body aches, chills, fever. 15:53 ENT: Positive for rhinorrhea, sinus congestion, sore throat. 15:53 Cardiovascular: Positive for chest pain, with cough. 15:53 Respiratory: Positive for cough, Negative for dyspnea on exertion, shortness of breath, sputum production, wheezing. Exam: 15:53 Eyes: Pupils equal round and reactive to light, extra-ocular motions intact. Lids and jr8 lashes normal. Conjunctiva and sclera are non-icteric and not injected. Cornea within normal limits. Periorbital areas with no swelling, redness, or edema. ENT: Nares patent. No nasal discharge, no septal abnormalities noted. Tympanic membranes are normal and external auditory canals are clear. Oropharynx with no redness, swelling, or masses, exudates, or evidence of obstruction, uvula midline. Mucous membranes moist. Neck: Trachea midline, no thyromegaly or masses palpated, and no cervical lymphadenopathy. Supple, full range of motion without nuchal rigidity, or vertebral point tenderness. No Meningismus. Cardiovascular: Regular rate and rhythm with a normal S1 and S2. No gallops, murmurs, or rubs. Normal PMI, no JVD. No pulse deficits. Respiratory: Lungs have equal breath sounds bilaterally, clear to auscultation and percussion. No rales, rhonchi or wheezes noted. No increased work of breathing, no retractions or nasal flaring. Abdomen/GI: Soft, non-tender, with normal bowel sounds. No distension or tympany. No guarding or rebound. No evidence of tenderness throughout. Back: No spinal tenderness. No costovertebral tenderness. Full range of motion. Skin: Warm, dry with normal turgor. Normal color with no rashes, no lesions, and no evidence of cellulitis. MS/ Extremity: Pulses equal, no cyanosis. Neurovascular intact. Full, normal range of motion. Neuro: Awake and alert, GCS 15, oriented to person, place, time, and situation. Cranial nerves II-XII grossly intact. Motor strength 5/5 in all extremities. Sensory grossly intact. Cerebellar exam normal. Normal gait. Vital Signs: 13:37 BP 123 / 65; Pulse 75; Resp 15; Temp 98.0(TE); Pulse Ox 98% on R/A; Weight 63.5 kg; ss Height 4 ft. 9 in. (144.78 cm); Pain 8/10; 15:04 BP 117 / 80 LA (auto/reg); Pulse 85; Temp 99.4(O); Pulse Ox 100% on R/A; Pain 8/10; jp3 16:33 BP 107 / 77; Pulse 89; Resp 17; Temp 99(O); Pulse Ox 100% on R/A; tw2 13:37 Body Mass Index 30.30 (63.50 kg, 144.78 cm) ss MDM: 14:57 Patient medically screened. [facility] 16:31 Data reviewed: vital signs, nurses notes, lab test result(s), radiologic studies, plain jr8 films. Data interpreted: Pulse oximetry: on room air is 100 %. Interpretation: normal. Counseling: I had a detailed discussion with the patient and/or guardian regarding: the historical points, exam findings, and any diagnostic results supporting the discharge/admit diagnosis, lab results, radiology results, the need for outpatient follow up, a family practitioner, to return to the emergency department if symptoms worsen or persist or if there are any questions or concerns that arise at home. ED course: Discussed with patient that she has small pleural effusion present on left side. Nonspecific at this time. Will treat her with steroids and Abx. Needs to f/u for repeat CXR. 01/08 15:44 Order name: Influenza Screen (a \T\ B); Complete Time: 16: [facility] 01/08 15:44 Order name: Strep; Complete Time: 16: [facility] 01/08 15:44 Order name: XRAY Chest (1 view); Complete Time: 16: [facility] 01/08 16:29 Order name: Throat Culture EDMS Administered Medications: No medications were administered Disposition: 17:24 Co-signature as Attending Physician, Igor Alcazar MD. [facility] 17:24 I agree with the assessment and plan of care. [facility] Disposition: 01/09/20 16:34 Discharged to Home. Impression: Acute Bacterial Bronchitis, Acute pharyngitis. - Condition is Stable. - Discharge Instructions: Acute Bronchitis, Adult, Pharyngitis. - Prescriptions for Prednisone 20 mg Oral Tablet - take 1 tablet by ORAL route once daily for 5 days; 5 tablet. Zithromax Z- Kiel 250 mg Oral Tablet - take 1 tablet by ORAL route as directed for 5 days Day 1 - take two (2) tablets one time. Day 2, 3, 4 , 5 take one (1) tablet once daily.; 6 tablet. - Medication Reconciliation Form, Thank You Letter, Antibiotic Education, Prescription Opioid Use, Work release form form. - Follow up: Private Physician; When: 1 week; Reason: Recheck today's complaints, Continuance of care, Re-evaluation by your physician. - Problem is new. - Symptoms have improved. Signatures: Dispatcher [employer] EDMS Igor Alcazar MD MD cha Smirch, Shelby, RN RN Cecil Allison PA PA jr8 Cindy Ratliff RN RN tw2 Corrections: (The following items were deleted from the chart) 16:59 16:34 01/09/2020 16:34 Discharged to Home. Impression: Acute Bacterial Bronchitis; tw2 Acute pharyngitis. Condition is Stable. Forms are Work release form, Medication Reconciliation Form, Thank You Letter, Antibiotic Education, Prescription Opioid Use. Follow up: Private Physician; When: 1 week; Reason: Recheck today's complaints, Continuance of care, Re-evaluation by your physician. Problem is new. Symptoms have improved. jr8
[2020-01-09 17:18] VITALS: O2SAT 100
[2020-01-09 17:19] VITALS: BP 107/77; TEMP 99
== END 2020-01-09 16:59 | disposition home or self-care (01) ==
LOC: ER 13:04
DX: J20.9 Acute bronchitis, unspecified (principal); J02.9 Acute pharyngitis, unspecified; Z88.0 Allergy status to penicillin
CPT/HCPCS: 71045; 87070; 87081; 87804; 99284

== ENCOUNTER 2021-09-23 10:34 | Emergency (ER) | payer SELFPAY ==
--- NOTE | 2021-09-23 12:00 | RAD REPORT ---
EXAM DESCRIPTION: CT - Head Brain Wo Cont - 09/23/2021 11:48 am CLINICAL HISTORY: Weakness/numbness COMPARISON: 2018 TECHNIQUE: Computed axial tomography of the head was obtained. IV contrast was not requested. All CT scans are performed using dose optimization technique as appropriate and may include automated exposure control or mA/KV adjustment according to patient size. FINDINGS: An intracranial bleed is not seen . The ventricles are normal in caliber. No extra-axial fluid collection is noted. Fluid within the sinuses/ mastoids is not seen. IMPRESSION: No acute intracranial abnormality is seen. If patient's symptoms persist MRI of the bra in would be recommended.
[2021-09-23 12:41] LABS: Absolute Lymphocytes (CBC) 1.2 K/uL (0.7-4.9); Basophils % 0.2 % (0-1.3); Hematocrit 32.3 % (36.0-45.0); Lymphocytes % 13.1 % (15.3-44.8); MPV 7.6 fL (7.6-11.3); RBC Red Blood Cell Count 3.82 M/uL (3.86-4.86)
[2021-09-23 12:56] LABS: ALT/SGPT 10 U/L (12-78); AST/SGOT 10 U/L (15-37); Albumin 2.7 g/dL (3.4-5.0); Alkaline Phosphatase 99 U/L (45-117); BUN Blood Urea Nitrogen 6 mg/dL (7-18); Bicarbonate 27 mmol/L (21-32); Bilirubin Total 0.3 mg/dL (0.2-1.0); Glucose Level 95 mg/dL (74-106); Potassium 3.9 mmol/L (3.5-5.1); Protein, Total 8.2 g/dL (6.4-8.2); Sodium Level 139 mmol/L (136-145)
[2021-09-23] MEDS ORDERED: METHYLPREDNISOLONE 125 MG INJ ONE (13:21)
[2021-09-23] MEDS ORDERED: KETOROLAC 30 MG/ML INJ ONE (13:21)
--- NOTE | 2021-09-23 13:31 | ER ---
Nurse's Notes [facility] Name: Stacy Berrios Age: 46 yrs Sex: Female : 1975 Arrival Date: 09/23/2021 Time: 10:35 Bed 5 Private MD: Diagnosis: Pain in unspecified joint-multijoint arthralgia Presentation: 09/23 11:00 Chief complaint: Patient states: swelling to hands, knees, and feet with pain all over aa5 body that began 1 month ago but got worse over the last 2 weeks. Pt reports numbness to left side of face that comes and goes and began today at 0530, reports she woke up with the numbness to left side of face. 11:00 Coronavirus screen: At this time, the client does not indicate any symptoms associated aa5 with coronavirus-19. Ebola Screen: No symptoms or risks identified at this time. Initial Sepsis Screen: Does the patient meet any 2 criteria? No. Patient's initial sepsis screen is negative. Does the patient have a suspected source of infection? No. Patient's initial sepsis screen is negative. Risk Assessment: Do you want to hurt yourself or someone else? Patient reports no desire to harm self or others. Onset of symptoms was September 2021. 11:00 Acuity: MILLIE 3 aa5 11:00 Method Of Arrival: Wheelchair aa5 Historical: - Allergies: 11:01 PENICILLINS; aa5 - PMHx: 11:01 TBI; aa5 - PSHx: 11:01 None; aa5 - Immunization history:: Client reports receiving the 2nd dose of the Covid vaccine. - Social history:: Smoking status: Patient reports the use of cigarette tobacco products, denies chronic smoking, but will smoke occasionally. Screenin:48 Abuse screen: Denies threats or abuse. Denies injuries from another. Nutritional jh5 screening: No deficits noted. Tuberculosis screening: No symptoms or risk factors identified. Fall Risk Fall in past 12 months (25 points). Assessment: 12:44 General: Appears in no apparent distress. uncomfortable, Behavior is calm, cooperative, jh5 appropriate for age. Pain: Complains of pain in Generalized. Neuro: No deficits noted. Level of Consciousness is awake, alert, obeys commands, Oriented to person, place, time, situation, Appropriate for age Speech is normal. Cardiovascular: No deficits noted. Capillary refill < 3 seconds Patient's skin is warm and dry. Respiratory: No deficits noted. Airway is patent Trachea midline Respiratory effort is even, unlabored, Respiratory pattern is regular, symmetrical. Vital Signs: 11:00 BP 124 / 81; Pulse 75; Resp 18 S; Temp 97.5(TE); Pulse Ox 100% on R/A; Weight 59.87 kg aa5 (R); Height 4 ft. 9 in. (144.78 cm) (R); 11:00 Body Mass Index 28.56 (59.87 kg, 144.78 cm) [facility] ED Course: 10:35 Patient arrived in ED. as 11:00 Arm band placed on. aa5 11:02 Triage completed. aa5 11:18 Bradley Cullen NP is PHCP. pm1 11:18 Russell Hahn MD is Attending Physician. pm1 11:48 CT Head Brain wo Cont In Process Unspecified. EDIL 12:08 Susan Nolasco RN is Primary Nurse. 5 12:44 Inserted saline lock: 18 gauge in right antecubital area, using aseptic technique. jh5 12:48 Patient has correct armband on for positive identification. Bed in low position. Call [facility] light in reach. Side rails up X2. Adult w/ patient. 13:33 No provider procedures requiring assistance completed. IV discontinued, intact, jh5 bleeding controlled, No redness/swelling at site. Pressure dressing applied. Administered Medications: 13:29 Drug: SOLU-Medrol (methylPrednisoLONE) 125 mg Route: IVP; Site: right antecubital; 5 13:29 Drug: Ketorolac 30 mg Route: IVP; Site: right antecubital; [facility] Outcome: 13:31 Discharge ordered by . pm1 13:33 Discharged to home jh5 13:33 Condition: stable 13:33 Discharge instructions given to Instructed on discharge instructions, follow up and referral plans. medication usage, safety practices, Demonstrated understanding of instructions, follow-up care, medications, Prescriptions given X 1. 13:40 Patient left the ED. jh5 13:51 Patient left the ED. [facility] Signatures: Dispatcher [employer] EDMS Patricia Fountain Audri, RN RN [facility] Bradley Cullen NP SHOWPLACE MANAGER pm1 Susan Nolasco RN RN jh5 Corrections: (The following items were deleted from the chart) 11:04 11:00 Chief complaint: Patient states: swelling to hands, knees, and feet with pain all aa5 over body that began 1 month ago but got worse over the last 2 weeks. aa5
--- NOTE | 2021-09-23 13:32 | EDPHYS ---
Physician Documentation [facility] Name: Stacy Berrios Age: 46 yrs Sex: Female : 1975 Arrival Date: 09/23/2021 Time: 10:35 Bed 5 Private MD: ED Physician Russell Hahn HPI: 09/23 11:20 This 46 yrs old Female presents to ER via Wheelchair with complaints of Pain pm1 All Over, Numbness Of Face. 11:20 Patient went onset of pain all over her body 1 month ago and swelling to hands feet pm1 knees. Patient reports also left sided facial numbness that comes and goes over the same duration, 1 month. Patient is concerned she may have lupus. Has a family history of lupus. Onset: The symptoms/episode began/occurred 1 month(s) ago. Severity of symptoms: in the emergency department the symptoms are worse. The patient has been recently seen by a physician: with similar presenting complaints, Patient was seen at [facility] and was seen for the same complaint. No work-up was performed patient was discharged home with tramadol. Historical: - Allergies: 11:01 PENICILLINS; aa5 - PMHx: 11:01 TBI; aa5 - PSHx: 11:01 None; aa5 - Immunization history:: Client reports receiving the 2nd dose of the Covid vaccine. - Social history:: Smoking status: Patient reports the use of cigarette tobacco products, denies chronic smoking, but will smoke occasionally. ROS: 11:20 Constitutional: Negative for fever, chills, and weight loss, Cardiovascular: Negative pm1 for chest pain, palpitations, and edema, Respiratory: Negative for shortness of breath, cough, wheezing, and pleuritic chest pain, Abdomen/GI: Negative for abdominal pain, nausea, vomiting, diarrhea, and constipation, Skin: Negative for injury, rash, and discoloration. 11:20 MS/extremity: Positive for tenderness, Joints of shoulders, elbows, wrists, fingers, knees, ankle, feet bilaterally. Mild swelling to hands and feet bilaterally. 11:20 Neuro: Positive for numbness, of the left side of face, Negative for headache, numbness, tingling, weakness. 11:20 All other systems are negative. Exam: 11:20 Constitutional: This is a well developed, well nourished patient who is awake, alert, pm1 and in no acute distress. Head/Face: Normocephalic, atraumatic. 11:20 Back: No spinal tenderness. No costovertebral tenderness. Full range of motion. Skin: Warm, dry with normal turgor. Normal color with no rashes, no lesions, and no evidence of cellulitis. 11:20 ENT: Mouth: no acute changes, Lips: normal, moist, Oral mucosa: normal, pink and intact, moist. 11:20 Cardiovascular: Exam negative for acute changes, Rate: normal, Rhythm: regular, Pulses: no pulse deficits are appreciated. 11:20 Respiratory: Exam negative for acute changes, respiratory distress, shortness of breath. 11:20 Musculoskeletal/extremity: Extremities: grossly normal except: noted in the right hand, left hand, right foot, left foot, right elbow, right wrist, left elbow, left wrist, right knee and left knee: tenderness, noted in the right hand, left hand, right foot and left foot: swelling. 11:20 Neuro: Exam negative for acute changes, Orientation: is normal, Mentation: is normal, Cranial nerves: CN II- XII are normal as tested, Motor: moves all fours, strength is 5/5 in all extremities, Sensation: no obvious gross deficits. Vital Signs: 11:00 BP 124 / 81; Pulse 75; Resp 18 S; Temp 97.5(TE); Pulse Ox 100% on R/A; Weight 59.87 kg aa5 (R); Height 4 ft. 9 in. (144.78 cm) (R); 11:00 Body Mass Index 28.56 (59.87 kg, 144.78 cm) aa5 MDM: 11:40 Patient medically screened. pm1 13:02 ED course: Refused narcotics and requested steroids for her joint pain. Patient reports pm1 similar from around joints and pain back in 2016 and receiving a steroid shot at that time. Patient has not seen rheumatology for her symptoms reports history of lupus in her family. Patient instructed to follow-up with rheumatology or PCP in order to get test for diagnoses of autoimmune disorders. 13:03 Data reviewed: vital signs. Data interpreted: Pulse oximetry: on room air is 100 %. pm1 Interpretation: normal. 13:27 Counseling: I had a detailed discussion with the patient and/or guardian regarding: the pm1 historical points, exam findings, and any diagnostic results supporting the discharge/admit diagnosis, lab results, radiology results, the need for outpatient follow up, for definitive care, a community administrator, to return to the emergency department if symptoms worsen or persist or if there are any questions or concerns that arise at home. 09/23 11:20 Order name: CBC with Diff; Complete Time: 12:43 pm1 09/23 11:20 Order name: CMP; Complete Time: 12:57 pm1 09/23 11:20 Order name: CT Head Brain wo Cont; Complete Time: 12:19 pm1 09/23 11:20 Order name: IV Saline Lock; Complete Time: 12:44 pm1 Administered Medications: 13:29 Drug: SOLU-Medrol (methylPrednisoLONE) 125 mg Route: IVP; Site: right antecubital; [facility] 13:29 Drug: Ketorolac 30 mg Route: IVP; Site: right antecubital; [facility] Disposition: 14:52 Co-signature as Attending Physician, Russell Hahn MD I agree with the assessment and kdr plan of care. Disposition Summary: 09/23/21 13:31 Discharge Ordered Location: Home pm1 Problem: new pm1 Symptoms: have improved pm1 Condition: Stable pm1 Diagnosis - Pain in unspecified joint - multijoint arthralgia pm1 Followup: pm1 - With: Emergency Department - When: As needed - Reason: Worsening of condition Followup: pm1 - With: Private Physician - When: 2 - 3 days - Reason: Recheck today's complaints, Continuance of care, Re-evaluation by your physician Discharge Instructions: - Discharge Summary Sheet pm1 - Joint Pain pm1 - Musculoskeletal Pain pm1 Forms: - Medication Reconciliation Form pm1 - Thank You Letter pm1 - Antibiotic Education pm1 - Prescription Opioid Use pm1 - Work release form 5 Prescriptions: - Diclofenac Sodium 75 mg Oral tablet,delayed release (DR/EC) - take 1 tablet by ORAL route 2 times per day As needed; 30 tablet; Refills: 0, pm1 Product Selection Permitted - Medrol (Kiel) 4 mg Oral Tablets, Dose Pack - take 1 tablet by ORAL route as directed - follow package instructions; 1 pm1 packet; Refills: 0, Product Selection Permitted Signatures: Dispatcher [employer] Russell Keane MD MD kdr Calderon, Audri, RN RN aa5 Bradley Cullen, BED AND BREAKFAST COOK BED AND BREAKFAST COOK pm1 Susan Nolasco, RN RN jh5
[2021-09-23 13:50] VITALS: BP 124/81; TEMP 97.5; O2SAT 100
== END 2021-09-23 13:51 | disposition home or self-care (01) ==
LOC: ER 10:34
DX: M25.59 Pain in other specified joint (principal); R20.0 Anesthesia of skin; F17.210 Nicotine dependence, cigarettes, uncomplicated; Z88.0 Allergy status to penicillin
CPT/HCPCS: 36415; 70450; 80053; 85025; 96374; 96375; 99284; J2930

== ENCOUNTER 2022-06-28 07:50 | Emergency (ER) | payer SELFPAY ==
--- OUTSIDE RECORDS SUMMARY | 2022-06-28 07:53 | XMS REPORT | Continuity of Care Document ---
:1975 Author Organization [facility] t Address [address] [place] [address] Care Team Providers Name Role Phone Pcp, Patient Does Not Have A Primary Care Physician [id number] MARLENY RAMÍREZ Attending Clinician Unavailable Marleny Ramírez MD Attending Clinician Doctor Unassigned, Tyrone Forge Attending Clinician Unavailable RAIMUNDO DICKERSON Attending Clinician Unavailable Raimundo Dickerson NP Attending Clinician BRITTANY CANTU M.D. Attending Clinician Unavailable Problems Condition Condition Condition Status Onset Resolution Last Treating Co mments Source Name Details Category Date Date Treatment Clinician Date Complicate Complicate Problem Active U T d migraine d migraine [id number] Physici ans No known No known Disease Unive rs active active ity of problems problems [facility] Allergies, Adverse Reactions, Alerts Allergy Allergy Status Severity Reaction(s) Onset Inactive Treating Comm ents Source Name Type Date Date Clinician PENICILL Drug Active Swelling 2020-0 Univer s INS Class - ity of 00:00: [place] 00 Medical Branch Penicill Propensi Active Swelling 2020-0 Univ ers ins ty to 01-30 ity of adverse 00:00: [place] reaction 00 Medical s Branch Penicill drug Active [place] ins allergy Physici ans NO KNOWN Drug Active Univers ALLERGIE Class ity of S [facility] Social History Social Habit Start Date Stop Date Quantity Comments Source History SDTN University o f Alcohol Frequency [facility] edical Branch History [facility] University o f Alcohol Std [facility] Drinks Branch History SDOH University o f Alcohol Binge [place] Medic al Branch Exposure to Not sure [place] of SARS-CoV-2 [place] Medical (event) Branch Alcohol Comment 2020-01-31 2020-01-31 SOBER 3 years Univer sity of 00:00:00 00:00:00 [facility] Tobacco use and 2020-01-31 2020-01-31 Never used Universit y of exposure 00:00:00 00:00:00 [facility] Alcohol intake 2020-01-31 2020-01-31 Ex-drinker University 00:00:00 00:00:00 (finding) [facility] Sex Ass[birth year] At [birth year] Universit y of 00:00:00 00:00:00 [facility] Smoking Status Start Date Stop Date Source Former smoker 2020-01-31 00:00:00 2020-01-31 00:00:00 Universi ty of [facility] Medications Ordered Filled Start Stop Current Ordering Indication Dosage Frequency Signature Comments Components Source Medication Medication Date Date Medication? Clinician (SIG) Name Name ketorolac 2020-11 No 30mg 30 mg, Unive rs (TORADOL) 11-12 Intramuscu ity of injection 13:30: 12:22 lar, ONCE, [place] 30 mg 00 :00 1 dose, On Medical Wed Branch 09/12/21 at 0730, FIDELINA
Fa culty member approving Restricted medication : MARLENY RAMÍREZ traMADoL 2020-11 Yes [id number] 50mg Take 1 Univers (ULTRAM) 50 1-12 tablet by ity of mg tablet 00:00: mouth [place] 00 every 6 Medical (six) Branch hours as needed for Pain (scale 7-10). Indication s: acute pain clindamycin Yes 600mg 600 mg, Un catrachito (CLEOCIN) 01-30 Intramuscu ity of injection 16:00: lar, Q8H [place] 600 mg 00 ABX, First Medical dose on Branch Wed01/31/20 at 1100, Until Discontinu ed, FIDELINA
Re ason for Anti-Infec tive: Documented Infection< br>Documen joleen Infection Site: Skin / Soft Tissue
Duration of Therapy: 7 days
Re stricted use approved by: ADC PROVIDER No known 2020-0 No Univers medications 01-30 ity of 09:52: [place] 16 [facility] clindamycin 2020- No [id number] 450mg Take 3 Univers 150 mg 01-30 capsules ity of capsule 00:00: 04:59 by mouth 3 [place] as 00 :00 (three) Medical times [place] daily for 10 days. Aspirin 81 Aspirin 81 2017- Yes 1 QD TAKE 1 UT MG Oral MG Oral 8-14 TABLET Physici Tablet Tablet 00:00: DAILY. ans Delayed Delayed 00 Release Release Verapamil Verapamil Yes BRITTANY Q8H TAKE 1 UT HCl - 40 MG HCl - 40 MG 8-14 PEPE M.D. TABLET Physici Oral Tablet Oral Tablet 00:00: EVERY 8 ans 00 HOURS DAILY. Vital Signs Vital Name Observation Time Observation Value Comments Source Systolic blood 2021-09-12 114 mm[Hg] University of pressure 12:00:00 [facility] Diastolic blood 2021-09-12 74 mm[Hg] University o f pressure 12:00:00 [facility] Heart rate 2021-09-12 66 /min [facility] 12:00:00 [facility] Respiratory rate 2021-09-12 15 /min University 12:00:00 [facility] Oxygen saturation 2021-09-12 98 /min [facility] Arterial blood 12:00:00 [facility] by Pulse oximetry [place] Body temperature 2021-09-12 36.28 [place] of 11:54:00 [facility] Body height 2021-09-12 144.8 cm University of 11:54:00 [facility] Body weight 2021-09-12 61.236 kg University of 11:54:00 [facility] BMI 2021-09-12 29.21 kg/m2 University of 11:54:00 [facility] Systolic blood 2020-01-31 146 mm[Hg] University of pressure 14:45:00 [facility] Diastolic blood 2020-01-31 104 mm[Hg] University o f pressure 14:45:00 [facility] Heart rate 2020-01-31 72 /min University of 14:45:00 [facility] Body temperature 2020-01-31 37.06 [place] University 14:45:00 [facility] Respiratory rate 2020-01-31 17 /min [facility] 14:45:00 [facility] Body height 2020-01-31 144.8 cm University 14:45:00 [facility] Body weight 2020-01-31 68.04 kg [facility] 14:45:00 [facility] BMI 2020-01-31 32.46 kg/m2 University 14:45:00 [facility] Oxygen saturation 2020-01-31 99 /min [facility] in Arterial blood 14:45:00 [facility] by Pulse oximetry Branch BP Diastolic 2018-06-14 94 mm[Hg] Location: RUE; [facility] 09:03:00 Position: Sitting Height 2018-06-14 57 [in_us] [facility] 09:03:00 Weight 2018-06-14 134.375 [lb_av] [facility] 09:03:00 Body Mass Index 2018-06-14 29.08 kg/m2 [facility] Calculated 09:03:00 Heart Rate 2018-06-14 62 /min Location: R [facility] 09:03:00 Brachial Artery; BP Systolic 2018-06-14 136 mm[Hg] Location: RUE; [facility] 09:03:00 Position: Sitting Procedures Procedure Date / Time Performed Performing Clinician [facility] e CONSENT/REFUSAL FOR 2021-09-12 11:47:24 Doctor Unassigned, No Un iversity of [place] DIAGNOSIS AND Name Medical Branch TREATMENT NOTICE OF PRIVACY 2021-09-12 11:46:17 Doctor Unassigned, No Univ ersity of [facility] Name Medical [place] NOTICE OF PRIVACY 2020-01-31 14:41:44 Doctor Unassigned, No Univ ersity of [facility] Name [facility] Encounters Start End Encounter Admission Attending Care Care Encounter Source Date/Time Date/Time Type Type Clinicians Facility Department ID 2021-09-12 2021-09-12 Emergency X [facility] E[facility] [id number] Univers 05:51:00 06:31:00 MARLENY whit[place]y of [facility] 2021-09-12 2021-09-12 Emergency [facility] [id number] Univers 05:51:00 06:31:00 Marleny PASCUAL [id number] ity [facility] [id number] [facility] [id number] [facility] 084 Branch 2021-09-12 2021-09-12 Orders Doctor RAYGOZA [id number] Univers 00:00:00 00:00:00 Only Unassigned, BERENICE [id number] ity [facility] [id number] [facility] [id number] [facility] 009 Branch 2020-01-31 2020-01-31 Emergency X [facility] ERT [id number] Univers 09:40:40 10:13:00 RAIMUNDO ity of [facility] 2020-01-31 2020-01-31 Emergency [facility] [id number] Univers 09:40:40 10:13:00 Raimundo Pascual [id number] ity of [place] [id number] [facility] [id number] [facility] 084 Branch 2020-01-31 2020-01-31 Emergency X [facility] ERT [id number] Univers 09:40:40 09:40:40 ity of [facility] 2018-06-14 2018-06-14 Outpatient [facility] [id number] 09:00:00 09:49:49 2018-06-14 2018-06-14 Appointmen GRACY CANTU [facility] [id number] [place] 09:00:00 09:00:00 t; BRITTANY CANTU, Louann Lopez M.D. Results This patient has no known results.
[2022-06-28 09:10] LABS: Absolute Lymphocytes (CBC) 1.1 K/uL (0.7-4.9); Hematocrit 27.2 % (36.0-45.0); Lymphocytes % 13.2 % (15.3-44.8)
[2022-06-28] MEDS ORDERED: dexAMETHasone 10 MG/ML VIAL ONE (09:15)
[2022-06-28] MEDS ORDERED: KETOROLAC 30 MG/ML INJ ONE (09:16)
[2022-06-28 09:23] LABS: Potassium 3.9 mmol/L (3.5-5.1)
--- NOTE | 2022-06-28 09:29 | RAD REPORT ---
EXAM DESCRIPTION: RAD - Knee Left 3 View - 06/28/2022 9:23 am CLINICAL HISTORY: knee pain COMPARISON: No comparisons FINDINGS: No acute fracture. No malalignment. No significant focal degenerative changes. IMPRESSION: No acute osseous abnormality involving the left knee.
--- NOTE | 2022-06-28 09:29 | RAD REPORT ---
EXAM DESCRIPTION: RAD - Shoulder Left 2 View - 06/28/2022 9:23 am CLINICAL HISTORY: shoulder pain COMPARISON: No comparisons FINDINGS/IMPRESSION: No acute fracture. No malalignment. No significant focal degenerative changes.
[2022-06-28] MEDS ORDERED: FENTANYL CITR 100 MCG/2 ML ONE (10:07)
[2022-06-28] MEDS ORDERED: NA CHLORIDE 0.9% 500 ML ONE (10:07)
--- NOTE | 2022-06-28 10:08 | RAD REPORT ---
EXAM DESCRIPTION: US - Extrem Venous W Compress Noble - 06/28/2022 9:56 am CLINICAL HISTORY: pain, swelling COMPARISON: No comparisons TECHNIQUE: Real-time sonographic evaluation of the lower extremity deep venous systems was performed using color Doppler, grayscale, and compression. FINDINGS: Bilateral lower extremities. Normal compressibility, flow augmentation, phasic flow and spontaneous flow is identified in both the left and right lower extremity deep venous systems. No intraluminal filling defects seen. Rounded mass in the left popliteal fossa which measures 3.1 cm. No central flow. IMPRESSION: No DVT in either lower extremity. Rounded structure in the left popliteal fossa may represent some internal hemorrhage into a Ochoa's c yst. If symptoms persist, MRI of the knee with and without contrast could better evaluate.
--- NOTE | 2022-06-28 11:03 | ER ---
Nurse's Notes [facility] Name: Stacy Berrios Age: 47 yrs Sex: Female : 1975 Arrival Date: 06/28/2022 Time: 07:53 Bed 18 Private MD: Diagnosis: Polyarticular Arthritis;Left Popliteal Cyst Presentation: 06/28 07:57 Chief complaint: Patient states: Pain all over that has been ongoing for 2 months. Pt ss was referred to a electrical equipment assembler, but has been unable to follow up. Coronavirus screen: Client denies travel out of the [place] in the last 14 days. Ebola Screen: Patient denies exposure to infectious person. Patient denies travel to an Ebola-affected area in the 21 days before illness onset. Initial Sepsis Screen: Does the patient meet any 2 criteria? No. Patient's initial sepsis screen is negative. Does the patient have a suspected source of infection? No. Patient's initial sepsis screen is negative. Risk Assessment: Do you want to hurt yourself or someone else? Patient reports no desire to harm self or others. Onset of symptoms is unknown. 07:57 Method Of Arrival: Wheelchair ss 07:57 Acuity: MILLIE 3 ss Historical: - Allergies: 07:57 PENICILLINS; ss - Home Meds: 07:57 None [Active]; ss - PMHx: 07:57 TBI; ss - PSHx: 07:57 None; ss - Immunization history:: Client reports receiving the 2nd dose of the Covid vaccine. - Social history:: Smoking status: Patient/guardian denies using tobacco, Stopped _ months ago 1. Screenin:15 Abuse screen: Denies threats or abuse. Denies injuries from another. Nutritional mb8 screening: No deficits noted. Tuberculosis screening: No symptoms or risk factors identified. Fall Risk No fall in past 12 months (0 pts). Secondary diagnosis (15 points) IV access (20 points). Ambulatory Aid- None/Bed Rest/Nurse Assist (0 pts). Gait- Weak (10 pts.). Mental Status- Oriented to own ability (0 pts). Total Cunningham Fall Scale indicates Low Risk Score (25-44 pts). Side Rails Up X 2 Family Present and informed to notify staff if they need to leave bedside As available Patient and Family Educated on Fall Prevention Program and strategies. Assessment: 08:15 General: Appears uncomfortable, Behavior is calm, cooperative, appropriate for age. mb8 Pain: Complains of pain in pain from both feet, up both legs, into left shoulder and right flank Pain currently is 10 out of 10 on a pain scale. at worst was 10 out of 10 on a pain scale. Quality of pain is described as. Cardiovascular: Denies chest pain, shortness of breath. Respiratory: No deficits noted. Breath sounds are clear bilaterally. Denies shortness of breath. 10:26 Reassessment: Patient and/or family updated on plan of care and expected duration. Pain mb8 level reassessed. Patient is alert, oriented x 3, equal unlabored respirations, skin warm/dry/pink. Patient states feeling better. Vital Signs: 07:57 BP 98 / 74; Pulse 77; Resp 14; Temp 98.6(TE); Pulse Ox 100% on R/A; Weight 53.52 kg; ss Pain 10/10; 09:15 BP 97 / 67; Pulse 68; Resp 20; Pulse Ox 99% ; Pain 10/10; mb8 09:15 BP 91 / 59; mb8 09:45 BP 98 / 64; mb8 10:00 BP 91 / 55; mb8 10:15 BP 84 / 63; Pulse 58; Resp 16; Pulse Ox 99% ; Pain 8/10; mb8 10:27 BP 96 / 53; Pulse 59; Resp 18; Pulse Ox 98% ; Pain 8/10; mb8 ED Course: 07:53 Patient arrived in ED. rg4 07:57 Arm band placed on right wrist. ss 07:58 Triage completed. ss 08:15 Patient has correct armband on for positive identification. Bed in low position. Call mb8 light in reach. Side rails up X2. 08:37 Larry Canada PA is PHCP. [facility] 08:37 Kin Abdullahi MD is Attending Physician. [facility] 08:57 Isael Kang, LLOYD is Primary Nurse. mb8 09:00 Initial lab(s) drawn, by me, sent to lab. Inserted saline lock: 20 gauge in right mb8 antecubital area, using aseptic technique. Blood collected. 09:14 No provider procedures requiring assistance completed. mb8 09:15 X-ray(s) taken. mb8 09:16 Warm blanket given. mb8 09:25 Knee Left 3 View XRAY In Process Unspecified. EDMS 09:25 Shoulder Left (2 View) XRAY In Process Unspecified. EDMS 09:58 US Extremity Venous W Compression Noble In Process Unspecified. EDMS 11:02 Shawn Marsh MD is Referral Physician. jmm 11:33 IV discontinued, intact, bleeding controlled, No redness/swelling at site. Pressure mb8 dressing applied. Administered Medications: 09:11 Drug: Decadron - Dexamethasone 10 mg Route: IVP; Site: right antecubital; mb8 10:06 Follow up: Response: No adverse reaction; No change in condition mb8 09:11 Drug: Ketorolac 15 mg Route: IVP; Site: right antecubital; mb8 10:07 Follow up: Response: No adverse reaction; No change in condition mb8 10:06 Drug: NS 0.9% 500 ml Route: IV; Rate: bolus; Site: right antecubital; mb8 10:44 Follow up: Response: No adverse reaction; IV Status: Completed infusion mb8 10:06 Drug: fentaNYL (PF) 25 mcg Route: IVP; Site: right antecubital; mb8 10:26 Follow up: Response: No adverse reaction; Pain is decreased mb8 Medication: 09:14 VIS not applicable for this client. mb8 Outcome: 11:02 Discharge ordered by . m 11:33 Discharged to home via wheelchair, with family. mb8 11:33 Condition: stable 11:33 Discharge instructions given to patient, family, Instructed on discharge instructions, follow up and referral plans. no drinking with medication, no driving heavy equipment, medication usage, Demonstrated understanding of instructions, follow-up care, medications, Prescriptions given X 2, Following a medical screening exam, the patient was provided information regarding alternative care sites and resources available per registration personnel. 11:34 Patient left the ED. mb8 Signatures: Dispatcher [employer] EDMS Larry Canada PA PA jmm Smirch, Shelby, RN RN ss Garcia, Rubi rg4 Isael Kang RN RN mb8 Corrections: (The following items were deleted from the chart) 10:26 10:15 BP 84 / 63; Pulse 58bpm; Resp 16bpm; Pulse Ox 99%; mb8 mb8
--- NOTE | 2022-06-28 11:03 | EDPHYS ---
Physician Documentation [facility] Name: Stacy Berrios Age: 47 yrs Sex: Female : 1975 Arrival Date: 06/28/2022 Time: 07:53 Bed 18 Private MD: ED Physician Kin Abdullahi HPI: 06/28 08:47 This 47 yrs old Female presents to ER via Wheelchair with complaints of Pain jmm All Over. 08:47 This is a 47 year old female with a history of TBI that presents to the ED with jmm complaints of pain in her knees, swelling, shoulder pain beginning approx 1 month ago. Symptoms are similar to a previous presentation of multijoint arthralgia. Denies fever. States she has taken otc medication with no relief. Most pain is localized to the left knee, and the left shoulder. . Historical: - Allergies: 07:57 PENICILLINS; ss - Home Meds: 07:57 None [Active]; ss - PMHx: 07:57 TBI; ss - PSHx: 07:57 None; ss - Immunization history:: Client reports receiving the 2nd dose of the Covid vaccine. - Social history:: Smoking status: Patient/guardian denies using tobacco, Stopped _ months ago 1. ROS: 08:47 Cardiovascular: Negative for chest pain, palpitations, and edema, Respiratory: Negative jmm for shortness of breath, cough, wheezing, and pleuritic chest pain, Abdomen/GI: Negative for abdominal pain, nausea, vomiting, diarrhea, and constipation. 08:47 Constitutional: Positive for body aches. 08:47 MS/extremity: Positive for pain, swelling. 08:47 All other systems are negative. Exam: 08:47 Head/Face: atraumatic. Eyes: EOMI, no conjunctival erythema appreciated ENT: Moist jmm Mucus Membranes Neck: Trachea midline, Supple Chest/axilla: Normal chest wall appearance and motion. Cardiovascular: Regular rate and rhythm. No edema appreciated Respiratory: Normal respirations, no respiratory distress appreciated Abdomen/GI: Non distended Back: Normal ROM Skin: General appearance color normal 08:47 Constitutional: The patient appears alert, awake, uncomfortable. 08:47 Musculoskeletal/extremity: moderate swelling noted to the left knee, painful rom appreciated, left anterior shoulder pain on palpation, full dorsalis pedis bilaterally, full radial pulse bilaterally. 08:47 Skin: Appearance: Color: normal in color. 08:47 Neuro: Orientation: is normal, Mentation: is normal, Memory: is normal. 08:47 Psych: Behavior/mood is pleasant, cooperative. Vital Signs: 07:57 BP 98 / 74; Pulse 77; Resp 14; Temp 98.6(TE); Pulse Ox 100% on R/A; Weight 53.52 kg; ss Pain 10/10; 09:15 BP 97 / 67; Pulse 68; Resp 20; Pulse Ox 99% ; Pain 10/10; mb8 09:15 BP 91 / 59; mb8 09:45 BP 98 / 64; mb8 10:00 BP 91 / 55; mb8 10:15 BP 84 / 63; Pulse 58; Resp 16; Pulse Ox 99% ; Pain 8/10; mb8 10:27 BP 96 / 53; Pulse 59; Resp 18; Pulse Ox 98% ; Pain 8/10; mb8 MDM: 08:[address] [facility] 09:40 Data reviewed: vital signs, nurses notes. [facility] 11:00 Counseling: I had a detailed discussion with the patient and/or guardian regarding: the [facility] historical points, exam findings, and any diagnostic results supporting the discharge/admit diagnosis, lab results, radiology results, the need for outpatient follow up, to return to the emergency department if symptoms worsen or persist or if there are any questions or concerns that arise at home. ED course: Pain has decreased in the ED. Due to multiple joint involvement, most likely systemic process. Patients is advised to follow up with ortho for the left knee. Patient otherwise advised to follow up with rheumatology. Patient given strict return precautions. Patient understood and agrees with the plan of care. . 06/28 08:46 Order name: CBC with Diff; Complete Time: 09:17 [facility] 06/28 08:46 Order name: BMP; Complete Time: 09:25 [facility] 06/28 08:46 Order name: US Extremity Venous W Compression Noble; Complete Time: 10:10 [facility] 06/28 08:57 Order name: Knee Left 3 View XRAY; Complete Time: 09:34 [facility] 06/28 08:58 Order name: Shoulder Left (2 View) XRAY; Complete Time: 09:34 [facility] 06/28 08:46 Order name: Saline Lock; Complete Time: 09:07 [facility] Administered Medications: 09:11 Drug: Decadron - Dexamethasone 10 mg Route: IVP; Site: right antecubital; mb8 10:06 Follow up: Response: No adverse reaction; No change in condition 8 09:11 Drug: Ketorolac 15 mg Route: IVP; Site: right antecubital; mb8 10:07 Follow up: Response: No adverse reaction; No change in condition 8 10:06 Drug: NS 0.9% 500 ml Route: IV; Rate: bolus; Site: right antecubital; mb8 10:44 Follow up: Response: No adverse reaction; IV Status: Completed infusion 8 10:06 Drug: fentaNYL (PF) 25 mcg Route: IVP; Site: right antecubital; mb8 10:26 Follow up: Response: No adverse reaction; Pain is decreased 8 Disposition: 17:26 Co-signature as Attending Physician, Kin Abdullahi MD. rn Disposition Summary: 06/28/22 11:02 Discharge Ordered Location: Home [facility] Condition: Stable [facility] Diagnosis - Polyarticular Arthritis [facility] - Left Popliteal Cyst [facility] Followup: [facility] - With: Shawn Marsh MD - When: 2 - 3 days - Reason: Recheck today's complaints, Continuance of care, Re-evaluation by your physician Discharge Instructions: - Arthritis [facility] - Ochoa Cyst [facility] - Discharge Summary Sheet 8 - Rheumatoid Arthritis [facility] Forms: - SBAR form mb8 - Medication Reconciliation Form [facility] - Thank You Letter [facility] - Antibiotic Education [facility] - Prescription Opioid Use [facility] - Work release form eb Prescriptions: - Diclofenac Sodium 75 mg Oral Tablet Sustained Release - take 1 tablet by ORAL route 2 times per day; 30 tablet; Refills: 0, Product [facility] Selection Permitted - Medrol (Kiel) 4 mg Oral Tablets, Dose Pack - take 1 tablet by ORAL route as directed - follow package instructions; 1 [facility] packet; Refills: 0, Product Selection Permitted - orphenadrine citrate 100 mg Oral Tablet Sustained Release - take 1 tablet by ORAL route 2 times per day As needed; 20 tablet; Refills: 0, [facility] Product Selection Permitted Signatures: Dispatcher [employer] Larry Conway PA PA [facility] Abdullahi, Kin, MD MD rn Smirch, Shabnam, RN RN ss Kang, Isael, RN RN mb8
[2022-06-28 11:59] VITALS: TEMP 98.6
[2022-06-28 12:29] VITALS: BP 96/53; O2SAT 98
== END 2022-06-28 11:34 | disposition home or self-care (01) ==
LOC: ER 07:50
DX: M71.22 Synovial cyst of popliteal space [Baker], left knee (principal); M13.80 Other specified arthritis, unspecified site; Z88.0 Allergy status to penicillin
CPT/HCPCS: 36415; 80048; 85025; 93970; 96361; 96374; 96375; 99284; J1100; J3010; J7040